=== PATIENT | male | born 1960 | race Caucasian/White ===

== ENCOUNTER 2017-12-05 10:35 | Inpatient (IN) | payer OTHER ==
[~2017-12-05] VITALS: Ht 180.3 cm; Wt 108.9 kg
--- NOTE | ~2017-12-05 | PR ---
[place], [place] PROGRESS NOTE NAME: JUDY KRUSE UNIT #: [id number] ROOM: 312 DOCTOR: RAJIV CANTU MD BIRTHDATE: [birth year] DOS: 12/08/2017 INTERVAL NOTE CHIEF COMPLAINT: "I didn't sleep as well last night, but I am feeling better." SUMMARY OF THE VISIT: The patient was interviewed in his room. He did report that he did not sleep nearly as well last night as he did the previous night, but does report that his mood is lifting and he is feeling less depressed. He is still feeling overriding anxiety that is episodic. It too has improved, but he does have breakthrough. Some of the anxiety was made worse when he heard a [employer] music song reminded him of his . He is tolerating the current medication regimen well. There is no excess sedation or somnolence. There are no other side effects noted. MENTAL STATUS: This morning, he is alert and oriented. Mood does seem to be strongly trending towards euthymia. Affect is much more appropriate. There is no ghazal, hypomania. There are no gross psychotic symptoms. Memory for the most part is intact. PLAN: I will increase the Remeron from 15 to 22.5 mg at bedtime attempting to find the right dose that is going to give us maximum sedation without any hangover. I will also increase the Vistaril from 50 mg 3 times a day to 50 mg 4 times a day in order to take away some more of the anxiety. We will engage in individual and lanier milieu activity, returning then to the least restrictive environment when psychiatrically stable. RAJIV CANTU MD CM:PNTRANS [id number] RAJIV CANTU MD 12/09/17 0501 interface
--- NOTE | ~2017-12-05 | EKG ---
[place], [place] ELECTROCARDIOGRAM REPORT NAME: JUDY KRUSE UNIT #: [id number] ROOM: 312 DOCTOR: SYLVIE DRAFT REPORT BIRTHDATE: [birth year] [facility] Test Date: 2017-12-05 Test Time: 11:11:13 Pat Name: JUDY KRUSE Department: Room: 312 Gender: M Chain Carrier: Rin Pruitt : 1960 Requested By: WEI JOSEPH Order Number: [id number] Reading MD: Jerry Strickland MD Measurements Intervals [place] Rate: 82 P: [place]: QRS: 10 QRSD: 105 T: 31 QT: 378 QTc: 442 Interpretive Statements Atrial fibrillation Electronically Signed On 12-05-2017 17:37:56 PDT by Jerry Strickland MD CM:EKGRPT:ELECTROCARDIOGRAM REPORT [id number] WEI JOSEPH MD EPIPHANY DRAFT REPORT WEI JOSEPH MD
--- NOTE | ~2017-12-05 | DS ---
[place], [place] DISCHARGE SUMMARY [id number] #: [id number] ROOM: 312 DOCTOR: RAJIV CANTU MD BIRTHDATE: [birth year] DOS: 12/11/2017 CHIEF COMPLAINT: "I have been so depressed, it is horrible what my is doing." HISTORY OF PRESENT ILLNESS: This is a 57-year-old white male who was admitted through the Emergency Room at [facility]. The patient presented there acutely depressed, stating that he was suicidal and was planning to take a bottle of sleeping pills in an effort to kill himself. The patient reports ongoing depression that has been made worse when he recently found out that his of 28 years has been having multiple affairs with many men and has been openly flaunting this in front of him. He has been forced to remain within the home for the last several months exacerbating his level of depression. During this period of time, he endorses significant depression with fleeting suicidal thoughts and a plan. He notes poor sleep with difficulty falling asleep, sleep continuity disturbance, crane follower awakening, anergia, anhedonia, hopeless, helpless feelings, crying spells, and inability to cope. Since March of this year, he has lost approximately 90 pounds due to poor appetite. The patient is admitted now to rule out any organic factors to attempt to stabilize on medication, to perform crisis intervention and return to the least restrictive environment when psychiatrically stable. SUMMARY OF HOSPITAL COURSE: The patient was admitted to the unit where he was immediately started on Remeron 15 mg at bedtime to aid sleep, improve appetite and combat depression. This did improve his sleep relatively quick. The dose was eventually adjusted from the 15 mg at bedtime dose to 22.5 mg at bedtime with excellent results. Additionally, he was started on Vistaril 50 mg 3 times daily as a nonaddicting antianxiety agent. This did seem to help, but he continued to complain of ongoing anxiety and some sleep disturbance as well, so the dose of the Vistaril itself was increased to 50 mg 4 times a day. He maintained on this combination of medications through the weekend and continued to note persistent improvement with the medicines. He noticed only mild side effects from the medications, dry mouth being the most common; otherwise, he voiced positive plans for the future and felt that the medication significantly aided his mood and improve his overall outlook. He voiced positive plans for the future and was anxious to get his life back on track. The patient was discharged home on 12/11/2017. MENTAL STATUS AT DISCHARGE: The patient is alert and oriented to person, place and time. Mood does seem to be strongly trending towards euthymia. Affect is much more appropriate. There is no ghazal, hypomania or gross psychotic symptoms. The neurovegetative symptoms that he presented upon admission had dissipated. There were no suicidal thoughts, homicidal thoughts, or self-injurious thoughts. Memory was intact. FINAL DIAGNOSES: Major depression, recurrent, severe. DISPOSITION: The patient is to return home. All of his prescriptions have been printed and will be sent with him. Aftercare will be set in the community. [place], [place] DISCHARGE SUMMARY NAME: JUDY KRUSE UNIT #: [id number] ROOM: 312 DOCTOR: RAJIV CANTU MD BIRTHDATE: [birth year] RAJIV CANTU MD CM:ANNETTE [id number] RAJIV CANTU MD 12/11/171646 interface
--- NOTE | ~2017-12-05 | CON ---
[place], [place] REPORT OF CONSULTATION [id number] UN[facility] #: [id number] ROOM: 312 DOCTOR: CLARISSE, PHD RAD BIRTHDATE: [birth year] DOS: 12/06/2017 SUBJECTIVE: The patient is a 57-year-old male, referred by Dr. Montes De Oca for individual psychotherapy. He is presently in the [facility] Unit at [facility]. He was admitted due to suicidal ideation with plan. The patient reports feelings of grief related to his marital relationship. Mood was depressed with the patient crying openly throughout the session. He endorsed wanting to , but firmly denies the intent to follow through with his plan to take sleeping pills with his children as a protective factor. Discussed his relationship with his , utilized CBT and supportive therapy interventions. The patient appeared to benefit. He appeared ambivalent about participating in treatment as an outpatient and feels as though he "does not belong." on the unit. PLAN: I will continue to follow the patient as needed while he is on the unit. He would benefit from participating in outpatient counseling as well upon discharge. Thank you very much for this consult. Shirley Moore, PhD CM:CONSTR:REPORT OF CONSULTATION 12/06/17 1333 interface
--- NOTE | ~2017-12-05 | WRIGHTHP ---
[place], [place] PATIENT HISTORY AND PHYSICAL EXAM [id number] UNIT #: [id number] ROOM: 312 DOCTOR: RAJIV CANTU MD BIRTHDATE: [birth year] DOS: 12/06/2017 INITIAL PSYCHIATRIC EVALUATION CHIEF COMPLAINT: "I have just been so depressed. It is horrible what my is doing." HISTORY OF PRESENT ILLNESS: This is a 57-year-old white male who was admitted through the Emergency Room at [facility]. The patient had presented there acutely depressed, stating that he was suicidal and would take a bottle of sleeping pills in an effort to kill himself if he had them. The patient reports ongoing depression. He has found out that his of 28 years has been having an affair with multiple males, and she openly flaunts this in front of him. He has been forced to remain within the home for the last several months exacerbating the level of his depression. During this period of time, he endorses significant depression with fleeting suicidal thoughts and a plan. He endorses poor sleep with difficulty falling asleep, sleep continuity disturbance, plastic frame inserter awakening, anergia, anhedonia, hopeless, helpless feelings, crying spells, and inability to cope. Since March, he has lost 90 pounds due to poor appetite. The patient reports that several years ago, he did have some type of treatment for depression, but does not remember exactly what medication he had been given. He is admitted now to rule out organic factors, to offer crisis stabilization, to stabilize on medication and return to the least restrictive environment when psychiatrically stable. PAST MEDICAL HISTORY: The patient medically has a history of atrial fibrillation, hypertension, hyperlipidemia, and obesity. SOCIAL HISTORY: He does not drink alcohol, smoke cigarettes. He does endorse positive smoking of cannabis. STRENGTHS: Ambulatory, supportive family. WEAKNESSES: Poor coping skills and increase social stressors. ALLERGIES: HE LISTS ALLERGIES TO PENICILLIN. MENTAL STATUS: He is alert and oriented to person, place, and time. Mood is overwhelmingly depressed. He is very perseverative about his 's affairs and the amount of psychiatric torment this is causing him. He endorses multiple neurovegetative symptoms along the way. His speech is slow at times and halting. There is overriding anxiety as well. There is no hypomania or ghazal. There are no auditory or visual hallucinations, delusions or paranoia. Memory for the most part is intact. DIAGNOSIS: Major depression, recurrent, severe. PLAN: I have started him already on Remeron 15 mg at bedtime. I will add Vistaril 50 mg 3 times a day as a non-addictive antianxiety agent. I may consider augmenting with a mood stabilizer. At this point, I will monitor, [place], [place] PATIENT HISTORY AND PHYSICAL EXAM NAME: JUDY KRUSE UNIT #: [id number] ROOM: 312 DOCTOR: RAJIV CANTU MD BIRTHDATE: [birth year] however. I have consulted Psychology to start him in therapy so that a basis for outpatient therapy can be formed here. We will engage him in individual and lanier milieu activity as well, returning then to the least restrictive environment when psychiatrically stable. RAJIV CANTU MD CM:HISPHYS:PATIENT HISTORY AND PHYSICAL EXAMINATION [id number] RAJIV CANTU MD 12/06/17 1120 interface
--- NOTE | ~2017-12-05 | PR ---
[place], [place] PROGRESS NOTE NAME: [facility]USE [id number] UNIT #: [id number] ROOM: 312 DOCTOR: RAJIV CANTU MD BIRTHDATE: [birth year] DOS: 12/07/2017 CHIEF COMPLAINT: "I slept so much better. I feel better, thank you." SUMMARY OF THE VISIT: The patient was interviewed as he was sitting in the dining area. He engaged readily in conversation and reported that he had an excellent night sleep last night, woke up and had a good breakfast. He reports feeling markedly improved since starting the new medicines and even the antianxiety medicine that was given to him during the day, had a positive impact on his overall sense of well-being. He convincingly denied any medication side effects. MENTAL STATUS: He is alert and oriented. Mood does seem to be trending towards euthymia. Affect is more appropriate. There is no ghazal, hypomania or gross psychotic symptoms. Memory for the most part is fully intact. PLAN: I will maintain Vistaril at 50 mg t.i.d. and Remeron at 15 mg at bedtime, engage in individual and lanier milieu activity, returning home or the least restrictive environment when psychiatrically stable. RAJIV CANTU MD CM:PNTRANS [id number] RAJIV CANTU MD 12/07/17 1205 interface
[2017-12-05 10:40] VITALS: BP 170/150
[2017-12-05 10:54] LABS: BASO # 0.1 10*3/uL (0.0-0.1); BASO % 1.1 % (0.0-1.0); EOS # 0.2 10*3/uL (0.0-0.4); HEMATOCRIT 48.3 % (42.0-52.0); HEMOGLOBIN 15.7 g/dl (14.0-18.0); LYMPH # 2.7 10*3/uL (1.3-4.4); MEAN CELL VOLUME 93.6 fl (80.0-94.0); MEAN CORPUSCULAR HGB 30.4 pg (27.0-31.0); MEAN CORPUSCULAR HGB CONC 32.5 g/dl (33.0-37.0); MEAN PLATELET VOLUME 10.9 fl (9.6-12.3); MONO # 0.7 10*3/uL (0.1-1.0); MONO % 6.9 % (3.0-9.0); NEUT # 5.7 10*3/uL (2.3-7.9); NEUT % 60.9 % (47.0-73.0); PLATELET COUNT AUTOMATED 235 10*3/uL (130-400); RED BLOOD COUNT 5.16 10*6/uL (4.50-5.90); RED CELL DISTRI WIDTH 13.1 % (0-14.5); WHITE BLOOD COUNT 9.4 10*3/uL (4.8-10.8)
[2017-12-05 11:02] LABS: ACT PARTIAL THROMBO TIME 25.3 SECONDS (20.8-31.5)
[2017-12-05] MEDS ORDERED: ALPRAZOLAM0.5 M3 PO (11:26)
[2017-12-05] MEDS ORDERED: SIMVASTATIN20 MG PO (11:26)
[2017-12-05] MEDS ORDERED: CYCLOBENZAPRINE10 MG PO (11:26)
[2017-12-05] MEDS ORDERED: LISINOPRIL20 MG PO (11:27)
[2017-12-05] MEDS ORDERED: METOPROLOL TART50 M1 PO (11:27)
[2017-12-05] MEDS ORDERED: XARE20MG PO (11:27)
[2017-12-05] MEDS ORDERED: LASIX40 MG PO (11:27)
[2017-12-05 11:29] LABS: ALBUMIN 3.8 gm/dl (3.1-4.5); ALKALINE PHOSPHATASE 92 U/L (45-117); BUN 8 mg/dl (7-24); CHLORIDE 106 mmol/L (98-107); CREATININE 0.87 mg/dL (0.70-1.30); POTASSIUM 4.5 mmol/L (3.5-5.1); SGOT/AST 17 IU/L (3-35); SGPT/ALT 18 U/L (12-78); SODIUM 142 mmol/L (136-145); TOTAL PROTEIN 8.2 gm/dL (6.4-8.2)
[2017-12-05 11:30] LABS: ETHYL ALCOHOL < 3.0 mg/dl (<3)
[2017-12-05 11:37] LABS: THYROID STIM HORMONE (HS) 0.927 uIU/ml (0.358-4.75)
[2017-12-05 11:55] VITALS: BP 160/90
[2017-12-05 13:24] LABS: URINE AMPHETAMINES < 1000 (1000ng/ml); URINE BARBITURATES < 200 (200ng/ml); URINE BENZODIAZEPINES > 200 (200ng/ml); URINE CANNABINOIDS (THC) > 50 (50ng/ml); URINE COCAINE < 300 (300ng/ml); URINE METHADONE < 300 (300ng/ml); URINE OPIATES < 300 (300ng/ml); URINE PHENCYCLIDINE < 25 (25ng/ml)
[2017-12-05 13:26] LABS: BACTERIA TRACE; BILIRUBIN NEGATIVE (NEGATIVE); BLOOD NEGATIVE (NEGATIVE); CLARITY SL CLOUDY (CLEAR); COLOR YELLOW (YELLOW); GLUCOSE NEGATIVE (NEGATIVE); KETONE NEGATIVE (NEGATIVE); LEUKO ESTERASE TRACE (NEGATIVE); NITRITE NEGATIVE (NEGATIVE); UROBILINOGEN 0.2 E.U./dl (0.2-1.0)
[2017-12-05 13:27] LABS: MUCOUS 1+
[2017-12-05 13:32] VITALS: BP 152/120
[2017-12-05 14:12] VITALS: BP 136/102
[2017-12-05 14:13] VITALS: BP 136/101
[2017-12-05 20:20] VITALS: BP 128/78
[2017-12-06 06:56] LABS: CHOLESTEROL 114 mg/dL (<200); HDL CHOLESTEROL 37 mg/dl (40-60); LDL CHOLESTEROL 59 mg/dL (9-159); TRIGLYCERIDES 89 mg/dl (<150); VLDL CHOLESTEROL 18 mg/dL (6-40)
[2017-12-06 09:16] VITALS: BP 137/99
[2017-12-06 09:45] LABS: VITAMIN D, 25-HYDROXY 31.8 ng/mL (30-100)
[2017-12-06 19:53] VITALS: BP 123/89
[2017-12-07 06:27] VITALS: BP 143/89
[2017-12-07 20:28] VITALS: BP 121/79
[2017-12-08 07:50] VITALS: BP 127/90
[2017-12-08 20:00] VITALS: BP 125/98
[2017-12-09 07:24] VITALS: BP 120/89
[2017-12-09 19:49] VITALS: BP 130/92
[2017-12-10 07:51] VITALS: BP 134/86
[2017-12-10 20:00] VITALS: BP 132/95
[2017-12-11 08:00] VITALS: BP 131/91
[2017-12-11] MEDS ORDERED: MIRTAZAPINE15 M2 PO (10:18)
[2017-12-11] MEDS ORDERED: HYDROXYZINE PAM25 M1 PO (10:18)
== END 2017-12-11 17:45 | disposition home or self-care (01) | DRG 885 ==
LOC: ED 10:35 → EDHOLD 13:11 → 3N 13:11
PROVIDERS: Emergency Medicine; Psychiatry & Neurology Psychiatry
DX: F33.2 Major depressive disorder, recurrent severe without psychotic features (principal); R45.851 Suicidal ideations; D68.59 Other primary thrombophilia; I48.91 Unspecified atrial fibrillation; E66.9 Obesity, unspecified; I10 Essential (primary) hypertension; E78.00 Pure hypercholesterolemia, unspecified; F17.210 Nicotine dependence, cigarettes, uncomplicated; Z68.32 Body mass index [BMI] 32.0-32.9, adult; Z79.899 Other long term (current) drug therapy; Z88.0 Allergy status to penicillin

== ENCOUNTER 2018-05-25 16:18 | Inpatient (IN) | payer OTHER ==
[~2018-05-25] VITALS: Ht 180.3 cm; Wt 108.1 kg
--- NOTE | ~2018-05-25 | EKG ---
[place], [place] ELECTROCARDIOGRAM REPORT NAME: JUDY KRUSE UNIT #: [id number] ROOM: 518 DOCTOR: SYLVIE DRAFT REPORT BIRTHDATE: [birth year] [facility] Test Date: 2018-05-25 Test Time: 17:02:05 Pat Name: JUDY KRUSE Department: Room: 518 Gender: M Embroidery Worker: Peace Abreu : 1960 Requested By: TOPHER HEBERT Order Number: [id number] Reading MD: John Gunter MD Measurements Intervals [place] Rate: 98 P: TX: QRS: 23 QRSD: 103 T: 19 QT: 348 QTc: 445 Interpretive Statements Atrial fibrillation Compared to ECG 12/05/2017 11:11:13 No significant changes Electronically Signed On 05-26-2018 15:03:19 PDT by John Gunter MD CM:EKGRPT:ELECTROCARDIOGRAM REPORT 1702 1503 TOPHER BENSON DRAFT REPORT TOPHER HEBERT DO
[~2018-05-25 16:18] MED LIST: ALPRAZOLAM0.5 M3 PO; CYCLOBENZAPRINE10 MG PO; HYDROXYZINE PAM25 M1 PO; LASIX40 MG PO; LISINOPRIL20 MG PO; METOPROLOL TART50 M1 PO; MIRTAZAPINE15 M2 PO; SIMVASTATIN20 MG PO; XARE20MG PO
[2018-05-25 16:19] VITALS: BP 155/94
[2018-05-25 17:08] LABS: HEMATOCRIT 40.9 % (42.0-52.0); HEMOGLOBIN 13.2 g/dl (14.0-18.0); MEAN CELL VOLUME 91.3 fl (80.0-94.0); MEAN CORPUSCULAR HGB 29.5 pg (27.0-31.0); MEAN CORPUSCULAR HGB CONC 32.3 g/dl (33.0-37.0); MEAN PLATELET VOLUME 11.1 fl (9.6-12.3); PLATELET COUNT AUTOMATED 449 10*3/uL (130-400); RED BLOOD COUNT 4.48 10*6/uL (4.50-5.90); RED CELL DISTRI WIDTH 12.4 % (0-14.5); WHITE BLOOD COUNT 20.6 10*3/uL (4.8-10.8)
[2018-05-25 17:09] LABS: INTERNATIONAL NORM RATIO 1.2 (2.0-3.5)
[2018-05-25 17:26] LABS: ALBUMIN 2.6 gm/dl (3.1-4.5); ALKALINE PHOSPHATASE 130 U/L (45-117); BUN 11 mg/dl (7-24); CHLORIDE 99 mmol/L (98-107); CREATININE 0.85 mg/dL (0.70-1.30); LIPASE 88 U/L (73-393); SGOT/AST 50 IU/L (3-35); SGPT/ALT 54 U/L (12-78); SODIUM 135 mmol/L (136-145); TOTAL PROTEIN 8.3 gm/dL (6.4-8.2)
[2018-05-25 17:30] VITALS: BP 154/92
[2018-05-25 17:34] LABS: TROPONIN I < 0.015 ng/ml (<0.045)
[2018-05-25 17:43] LABS: PLATELET SUFFICIENCY NORMAL (NORMAL); TOTAL CELLS COUNTED 100 #CELLS
[2018-05-25 18:26] LABS: BILIRUBIN 1+ (NEGATIVE); BLOOD TRACE-LYSED (NEGATIVE); CLARITY CLEAR (CLEAR); COLOR YELLOW (YELLOW); GLUCOSE NEGATIVE (NEGATIVE); KETONE NEGATIVE (NEGATIVE); LEUKO ESTERASE NEGATIVE (NEGATIVE); NITRITE POSITIVE (NEGATIVE)
[2018-05-25 18:39] LABS: BACTERIA 2+; MUCOUS 3+
[2018-05-25 19:30] VITALS: BP 148/90
[2018-05-25 20:35] VITALS: BP 136/84
[2018-05-25 21:32] VITALS: BP 134/82
[2018-05-25 22:10] VITALS: BP 142/85; BP 142/89
[2018-05-25] MEDS ORDERED: BUSPIRONE HCL10 MG PO (22:44)
[2018-05-26] VITALS: BP 111/60
[2018-05-26 04:00] VITALS: BP 112/83
[2018-05-26 05:24] LABS: ALBUMIN 2.1 gm/dl (3.1-4.5); BUN 10 mg/dl (7-24); CHLORIDE 103 mmol/L (98-107); CHOLESTEROL 103 mg/dL (<200); CREATININE 0.73 mg/dL (0.70-1.30); PHOSPHOROUS 3.7 mg/dL (2.5-4.9); POTASSIUM 4.2 mmol/L (3.5-5.1); SGOT/AST 48 IU/L (3-35); SGPT/ALT 53 U/L (12-78); SODIUM 137 mmol/L (136-145); TOTAL PROTEIN 6.7 gm/dL (6.4-8.2); TRIGLYCERIDES 88 mg/dl (<150); VLDL CHOLESTEROL 18 mg/dL (6-40)
[2018-05-26 05:25] LABS: ALKALINE PHOSPHATASE 114 U/L (45-117); HDL CHOLESTEROL 17 mg/dl (40-60); LDL CHOLESTEROL 68 mg/dL (9-159)
[2018-05-26 06:01] LABS: HEMATOCRIT 35.4 % (42.0-52.0); MEAN CELL VOLUME 92.9 fl (80.0-94.0); MEAN CORPUSCULAR HGB 29.1 pg (27.0-31.0); MEAN CORPUSCULAR HGB CONC 31.4 g/dl (33.0-37.0); MEAN PLATELET VOLUME 11.3 fl (9.6-12.3); PLATELET COUNT AUTOMATED 365 10*3/uL (130-400); RED BLOOD COUNT 3.81 10*6/uL (4.50-5.90); RED CELL DISTRI WIDTH 12.3 % (0-14.5)
[2018-05-26 06:12] LABS: HEMOGLOBIN 11.1 g/dl (14.0-18.0)
[2018-05-26 07:07] LABS: BASOPHILS 1 % (0-1); BURR CELLS MODERATE; PLATELET SUFFICIENCY NORMAL (NORMAL); ROULEAUX MODERATE; TOTAL CELLS COUNTED 100 #CELLS
[2018-05-26 08:00] VITALS: BP 118/77
--- NOTE | 2018-05-26 09:35 | NUR ---
PATIENT C/O PAIN ACROSS ENTIRE LOWER ABDOMEN THAT RADIATES DOWN INTO HIS "PRIVATE" PARTS. RATED 7/10 ON PAIN SCALE. MEDICATED WITH NORCO PER PRN ORDER. WILL CONTINUE TO MONITOR.
[2018-05-26 12:00] VITALS: BP 97/58
[2018-05-26 16:00] VITALS: BP 115/74
--- NOTE | 2018-05-26 16:00 | NUR ---
PT RESTING IN BED, DENIES ANY COMPLAINTS AT THIS TIME. HAS LOWER ABDOMINAL PRESSURE, BUT DENIES PAIN.
--- NOTE | 2018-05-26 18:08 | NUR ---
MEDICATED WITH NORCO PER PRN ORDER FOR COMPLAINTS OF 7/10 LOWER ABD PAIN, WILL MONITOR FOR EFFECTIVENESS.
[2018-05-26 20:00] VITALS: BP 110/61
--- NOTE | 2018-05-26 20:47 | NUR ---
PT SEEN AT THIS TIME. PT SITTING UP IN BED. NO SIGNS OF DISTRESS OF SHORTNESS OF BREATH. PT HAS NO COMPLAINTS AT THIS TIME. PT IS PLEASANT AND COOPERATIVE. BED IS IN LOWEST LOCKED POSITION. CALL LIGHT WITHIN REACH. WILL CONTINUE TO MONITOR.
[2018-05-27] VITALS: BP 104/83
[2018-05-27 06:51] LABS: HEMATOCRIT 35.4 % (42.0-52.0); HEMOGLOBIN 11.3 g/dl (14.0-18.0); MEAN CELL VOLUME 92.7 fl (80.0-94.0); MEAN CORPUSCULAR HGB 29.6 pg (27.0-31.0); MEAN CORPUSCULAR HGB CONC 31.9 g/dl (33.0-37.0); PLATELET COUNT AUTOMATED 377 10*3/uL (130-400); RED BLOOD COUNT 3.82 10*6/uL (4.50-5.90); RED CELL DISTRI WIDTH 12.3 % (0-14.5); WHITE BLOOD COUNT 16.6 10*3/uL (4.8-10.8)
[2018-05-27 07:09] LABS: ALBUMIN 2.1 gm/dl (3.1-4.5); ALKALINE PHOSPHATASE 106 U/L (45-117); BUN 9 mg/dl (7-24); CHLORIDE 102 mmol/L (98-107); CREATININE 0.81 mg/dL (0.70-1.30); PHOSPHOROUS 3.3 mg/dL (2.5-4.9); POTASSIUM 4.1 mmol/L (3.5-5.1); SGOT/AST 28 IU/L (3-35); SGPT/ALT 43 U/L (12-78); SODIUM 138 mmol/L (136-145); TOTAL PROTEIN 6.8 gm/dL (6.4-8.2)
[2018-05-27 07:26] LABS: PLATELET SUFFICIENCY NORMAL (NORMAL); TOTAL CELLS COUNTED 100 #CELLS
[2018-05-27 08:00] VITALS: BP 111/50
[2018-05-27 12:00] VITALS: BP 123/79
--- NOTE | 2018-05-27 12:25 | NUR ---
DILAUDID 1 MG GIVEN AT THIS TIME PER ORDER FOR 8/10 LOWER ABD PAIN, WILL MONITOR FOR EFFECTIVENESS.
--- NOTE | 2018-05-27 12:29 | NUR ---
CT PREP STARTED AT THIS TIME.
[2018-05-27 16:00] VITALS: BP 120/72
--- NOTE | 2018-05-27 16:00 | NUR ---
MEDICATED WITH DILAUDID PER PRN ORDER FOR COMPLAINTS OF LOWER ABD PAIN, ALSO GIVEN TYLENOL FOR TEMP OF 101.7.
--- NOTE | 2018-05-27 17:38 | NUR ---
SPOKE WITH DR MYERS REGARDING ORDER FOR BAXTER INSERTION-CLARIFICATION. STATES BAXTER TO BE INSERTED TOMORROW 05/28/18 PRIOR TO PT GOING TO IR.
[2018-05-27 20:00] VITALS: BP 133/93
[2018-05-28] VITALS (10 sets, daily range): BP systolic 98–119; BP diastolic 64–84
[2018-05-28 07:55] LABS: HEMATOCRIT 36.3 % (42.0-52.0); HEMOGLOBIN 11.5 g/dl (14.0-18.0); MEAN CELL VOLUME 93.8 fl (80.0-94.0); MEAN CORPUSCULAR HGB 29.7 pg (27.0-31.0); MEAN CORPUSCULAR HGB CONC 31.7 g/dl (33.0-37.0); MEAN PLATELET VOLUME 10.8 fl (9.6-12.3); PLATELET COUNT AUTOMATED 418 10*3/uL (130-400); RED BLOOD COUNT 3.87 10*6/uL (4.50-5.90); RED CELL DISTRI WIDTH 12.5 % (0-14.5); WHITE BLOOD COUNT 19.3 10*3/uL (4.8-10.8)
[2018-05-28 08:03] LABS: ACT PARTIAL THROMBO TIME 28.5 SECONDS (20.8-31.5); INTERNATIONAL NORM RATIO 1.4 (2.0-3.5)
[2018-05-28 08:17] LABS: TOTAL CELLS COUNTED 100 #CELLS
[2018-05-28 08:18] LABS: PLATELET SUFFICIENCY HIGH (NORMAL)
[2018-05-28 08:36] LABS: ALBUMIN 2.3 gm/dl (3.1-4.5); BUN 9 mg/dl (7-24); CHLORIDE 101 mmol/L (98-107); CREATININE 0.78 mg/dL (0.70-1.30); POTASSIUM 4.1 mmol/L (3.5-5.1); SGOT/AST 23 IU/L (3-35); SGPT/ALT 34 U/L (12-78); SODIUM 137 mmol/L (136-145)
[2018-05-28 08:38] LABS: ALKALINE PHOSPHATASE 102 U/L (45-117); TOTAL PROTEIN 6.8 gm/dL (6.4-8.2)
--- NOTE | 2018-05-28 13:00 | NUR ---
PT OFF FLOOR FOR SURGERY. WILL REVISIT LATER.
--- NOTE | 2018-05-28 15:15 | NUR ---
Dilaudid given per patient request for c/o abdominal pain. Patient rates pain 10/10. Will monitor.
--- NOTE | 2018-05-28 15:45 | NUR ---
Dilaudid effective. Patient satisfied.
--- NOTE | 2018-05-28 16:14 | NUR ---
Dural Mechanic in to talk to patient. Patient states lives at HOME with DAUGHTER. There are NO steps in the home. Physician: ALMA ROSA Pharmacy: [facility] Home health services: NONE Patient's level of ADLs: INDEPENDENT Patient has working utilities: YES DME: NONE Follow-up physician's appointment after d/c: WILL BE MADE BY HOSPITALIST NURSE DIRECTOR ON DISCHARGE Does patient want to access PORTAL?: NO Discharge plan PT STATES HE LIVES WITH HIS DAUGHTER AND IS INDPENDENT IN CARE. DENIES ANY HOME NEEDS AT THIS TIME. WILL CONTINUE TO FOLLOW. PT STATES DAUGHTER WILL TAKE HIM HOME.. ANITA NAZARIO
--- NOTE | 2018-05-28 19:18 | NUR ---
Medicated with Dilaudid IV prn for c/o post op pain rating 7-8/10. Will monitor effectiveness. Call light within reach.
--- NOTE | 2018-05-28 20:18 | NUR ---
DILAUDID EFFECTIVE FOR PAIN PER PT.
--- NOTE | 2018-05-28 23:10 | NUR ---
24 HR chart check completed.
[2018-05-29] VITALS: BP 107/71
[2018-05-29 08:00] VITALS: BP 130/80
[2018-05-29 08:46] LABS: BASO % 0.2 % (0.0-1.0); EOS % 0.1 % (1.0-4.0); HEMATOCRIT 36.9 % (42.0-52.0); HEMOGLOBIN 11.9 g/dl (14.0-18.0); LYMPH # 1.8 10*3/uL (1.3-4.4); LYMPH % 10.6 % (27.0-41.0); MEAN CELL VOLUME 93.2 fl (80.0-94.0); MEAN CORPUSCULAR HGB 30.1 pg (27.0-31.0); MEAN CORPUSCULAR HGB CONC 32.2 g/dl (33.0-37.0); MEAN PLATELET VOLUME 10.9 fl (9.6-12.3); MONO # 0.9 10*3/uL (0.1-1.0); MONO % 5.3 % (3.0-9.0); NEUT # 14.1 10*3/uL (2.3-7.9); NEUT % 82.9 % (47.0-73.0); PLATELET COUNT AUTOMATED 484 10*3/uL (130-400); RED BLOOD COUNT 3.96 10*6/uL (4.50-5.90); RED CELL DISTRI WIDTH 12.2 % (0-14.5)
[2018-05-29 08:57] LABS: INTERNATIONAL NORM RATIO 1.2 (2.0-3.5)
[2018-05-29 09:22] LABS: BUN 16 mg/dl (7-24); CHLORIDE 107 mmol/L (98-107); CREATININE 0.74 mg/dL (0.70-1.30); POTASSIUM 4.2 mmol/L (3.5-5.1); SODIUM 140 mmol/L (136-145)
--- NOTE | 2018-05-29 10:30 | NUR ---
Vale catheter removed. Patient tolerated well. Vale was emptied of 275ml of dark jamey urine. Patient educated on his first void of vale removal and he might experience some pain/discomfort. Will monitor.
[2018-05-29 12:00] VITALS: BP 115/82
[2018-05-29 16:00] VITALS: BP 117/78
--- NOTE | 2018-05-29 18:30 | NUR ---
Patient voided 200ml of dark jamey urine. Encouraged to drink fluids.
[2018-05-29 20:00] VITALS: BP 134/85
--- NOTE | 2018-05-29 21:35 | NUR ---
NORCO GIVEN PER ORDER FOR LOWER ABD PAIN RATED "5-6"
--- NOTE | 2018-05-29 22:00 | NUR ---
IV started left forearm with #22 angiocath after 1st attempts. The IV site was prepped with Chloraprep. Heparin lock attached. Sterile dressing applied. Patient tolerated precedure well. Procedure performed according to [facility] policy & procedure. NANCY JENKINS
--- NOTE | 2018-05-29 22:25 | NUR ---
NORCO EFFECTIVE FOR PAIN PER PT.
--- NOTE | 2018-05-29 23:05 | NUR ---
24 HR chart check completed.
[2018-05-30] VITALS: BP 121/77
[2018-05-30 06:42] LABS: BASO # 0.1 10*3/uL (0.0-0.1); BASO % 0.4 % (0.0-1.0); EOS % 0.2 % (1.0-4.0); HEMATOCRIT 34.6 % (42.0-52.0); HEMOGLOBIN 11.1 g/dl (14.0-18.0); LYMPH # 3.8 10*3/uL (1.3-4.4); LYMPH % 22.7 % (27.0-41.0); MEAN CELL VOLUME 93.3 fl (80.0-94.0); MEAN CORPUSCULAR HGB 29.9 pg (27.0-31.0); MEAN CORPUSCULAR HGB CONC 32.1 g/dl (33.0-37.0); MEAN PLATELET VOLUME 10.9 fl (9.6-12.3); MONO # 0.9 10*3/uL (0.1-1.0); MONO % 5.1 % (3.0-9.0); NEUT # 11.8 10*3/uL (2.3-7.9); NEUT % 70.6 % (47.0-73.0); PLATELET COUNT AUTOMATED 457 10*3/uL (130-400); RED BLOOD COUNT 3.71 10*6/uL (4.50-5.90); RED CELL DISTRI WIDTH 12.4 % (0-14.5); WHITE BLOOD COUNT 16.7 10*3/uL (4.8-10.8)
[2018-05-30 08:00] VITALS: BP 132/76
[2018-05-30 12:00] VITALS: BP 121/72
--- NOTE | 2018-05-30 12:14 | NUR ---
PT CONTINUE TO DENY NEEDS ON DISCHARGE. WILL CONTINUE TO FOLLOW.
[2018-05-30 16:00] VITALS: BP 110/74
--- NOTE | 2018-05-30 16:41 | NUR ---
C/O BLOODY URINE WITH CLOTS. DR WATSON NOTIFIED AND TTAY HELD.
[2018-05-30 17:02] LABS: BASO # 0.1 10*3/uL (0.0-0.1); BASO % 0.3 % (0.0-1.0); EOS # 0.1 10*3/uL (0.0-0.4); EOS % 0.4 % (1.0-4.0); HEMATOCRIT 39.6 % (42.0-52.0); HEMOGLOBIN 12.5 g/dl (14.0-18.0); LYMPH # 4.2 10*3/uL (1.3-4.4); LYMPH % 24.2 % (27.0-41.0); MEAN CELL VOLUME 94.7 fl (80.0-94.0); MEAN CORPUSCULAR HGB 29.9 pg (27.0-31.0); MEAN CORPUSCULAR HGB CONC 31.6 g/dl (33.0-37.0); MEAN PLATELET VOLUME 10.7 fl (9.6-12.3); MONO # 1.2 10*3/uL (0.1-1.0); MONO % 7.1 % (3.0-9.0); NEUT # 11.5 10*3/uL (2.3-7.9); PLATELET COUNT AUTOMATED 550 10*3/uL (130-400); RED BLOOD COUNT 4.18 10*6/uL (4.50-5.90); RED CELL DISTRI WIDTH 12.5 % (0-14.5); WHITE BLOOD COUNT 17.2 10*3/uL (4.8-10.8)
[2018-05-30 20:00] VITALS: BP 120/85
--- NOTE | 2018-05-30 20:30 | NUR ---
VOIDING COLOR JORDANA, NO CLOTS NOTED.
--- NOTE | 2018-05-30 23:00 | NUR ---
IV SITE RED AND C/O STINGING PER PT. Hep Lock discontinued. Site symptomatic. Pressure applied. Sterile dressing applied. IV started right forearm with #22 angiocath after 1 attempts. The IV site was prepped with Chloraprep. Heparin lock attached. Sterile dressing applied. Patient tolerated precedure well. Procedure performed according to [facility] policy & procedure. NANCY JENKINS
[2018-05-31] VITALS: BP 136/87
--- NOTE | 2018-05-31 03:47 | NUR ---
24 HR chart check completed.
[2018-05-31 06:35] LABS: BASO # 0.1 10*3/uL (0.0-0.1); BASO % 0.7 % (0.0-1.0); EOS # 0.1 10*3/uL (0.0-0.4); HEMATOCRIT 36.6 % (42.0-52.0); HEMOGLOBIN 11.6 g/dl (14.0-18.0); LYMPH # 4.1 10*3/uL (1.3-4.4); LYMPH % 36.8 % (27.0-41.0); MEAN CELL VOLUME 93.1 fl (80.0-94.0); MEAN CORPUSCULAR HGB 29.5 pg (27.0-31.0); MEAN CORPUSCULAR HGB CONC 31.7 g/dl (33.0-37.0); MEAN PLATELET VOLUME 10.5 fl (9.6-12.3); MONO # 0.8 10*3/uL (0.1-1.0); MONO % 6.8 % (3.0-9.0); NEUT # 5.9 10*3/uL (2.3-7.9); NEUT % 53.7 % (47.0-73.0); PLATELET COUNT AUTOMATED 450 10*3/uL (130-400); RED BLOOD COUNT 3.93 10*6/uL (4.50-5.90); RED CELL DISTRI WIDTH 12.6 % (0-14.5)
--- NOTE | 2018-05-31 07:41 | NUR ---
24 HR chart check completed.
[2018-05-31 08:00] VITALS: BP 132/88; BP 149/88
--- NOTE | 2018-05-31 09:25 | NUR ---
SITTING UP IN CHAIR EATING BREAKFAST WITH NO C/O ANY.
[2018-05-31 12:00] VITALS: BP 137/82
--- NOTE | 2018-05-31 12:23 | NUR ---
PT CONTINUES TO DENY HOME NEEDS AFTER DISCHARGE. WILL CONTINUE TO FOLLOW.
[2018-05-31] MEDS ORDERED: CIPRO500 MG PO (14:18)
[2018-05-31] MEDS ORDERED: MIRALAX17 GM PO (14:18)
[2018-05-31] MEDS ORDERED: NORCO 5-325 TA1 EACH PO (14:18)
[2018-05-31] MEDS ORDERED: FLAGYL500 MG PO (14:18)
--- NOTE | 2018-05-31 15:30 | NUR ---
Discharge instructions reviewed with patient/family. Patient receptive and verbalizes understanding. Follow-up care arranged. Written instructions given to patient/family. HEPLOCK DISCONTINUED. GEOFFREY CHANG
== END 2018-05-31 15:30 | disposition home or self-care (01) | DRG 853 ==
LOC: ED 16:18 → EDHOLD 21:28 → 5E 21:28 → ICCU 22:01 → 5E 05-26 14:17
PROVIDERS: Internal Medicine; Student in an Organized Health Care Education/Training Program; ADMIT Emergency Medicine
PROC: 0W9J40Z Drainage of Pelvic Cavity with Drainage Device, Percutaneous Endoscopic Approach (ICD-10-PCS; principal; 2018-05-28)
DX: A41.9 Sepsis, unspecified organism (principal); E43 Unspecified severe protein-calorie malnutrition; K35.33 Acute appendicitis with perforation, localized peritonitis, and gangrene, with abscess; N30.00 Acute cystitis without hematuria; K57.20 Diverticulitis of large intestine with perforation and abscess without bleeding; E87.1 Hypo-osmolality and hyponatremia; R65.20 Severe sepsis without septic shock; N32.89 Other specified disorders of bladder; K42.9 Umbilical hernia without obstruction or gangrene; K40.20 Bilateral inguinal hernia, without obstruction or gangrene, not specified as recurrent; N28.1 Cyst of kidney, acquired; E83.41 Hypermagnesemia; D64.9 Anemia, unspecified; E78.5 Hyperlipidemia, unspecified; R73.9 Hyperglycemia, unspecified; I48.2 Chronic atrial fibrillation; D47.3 Essential (hemorrhagic) thrombocythemia; I10 Essential (primary) hypertension; E66.09 Other obesity due to excess calories; F32.9 Major depressive disorder, single episode, unspecified; F41.9 Anxiety disorder, unspecified; Z68.33 Body mass index [BMI] 33.0-33.9, adult; Z88.0 Allergy status to penicillin; Z79.899 Other long term (current) drug therapy